=== PATIENT | male | born 1965 ===

== ENCOUNTER 2018-08-21 09:37 | Inpatient (IN) ==
[2018-08-21] MEDS ORDERED: BISACODYL 5 MG TABLET PO PRN (11:14)
[2018-08-21] MEDS ORDERED: ONDANSETRON 4 MG/2 ML VIAL IV PRN (11:14)
[2018-08-21] MEDS ORDERED: ACETAMINOPHEN 325 MG TABLET PO PRN (11:14)
[2018-08-21] MEDS ORDERED: GLUCAGON 1 MG VIAL IM PRN (11:17)
[2018-08-21] MEDS ORDERED: DEXTROSE 50% 25 GM/50 ML SYRINGE IV PRN (11:17)
[2018-08-21] MEDS ORDERED: BUPIVACAINE 0.5% 50 ML VIAL ONE (12:07)
[2018-08-21] MEDS ORDERED: LIDOCAINE 1%/EPI INJ 20 ML VIAL ONE (12:08)
[2018-08-21] MEDS: LACTATED RINGERS 1,000 ML IV SCH ×4 (12:15→23:03)
[2018-08-21] MEDS ORDERED: SEVOFLURANE 1 UNIT/15 MINUTE INH ONE (13:27)
[2018-08-21] MEDS ORDERED: PROPOFOL 200 MG/20 ML VIAL IV ONE (13:27)
[2018-08-21] MEDS ORDERED: MEPERIDINE 25 MG/1 ML VIAL ONE (13:28)
[2018-08-21] MEDS ORDERED: MIDAZOLAM 2 MG/2 ML VIAL ONE (13:28)
[2018-08-21] MEDS ORDERED: ONDANSETRON 4 MG/2 ML VIAL ONE (13:28)
[2018-08-21] MEDS ORDERED: fentaNYL 100 MCG/2 ML VIAL ONE (13:28)
[2018-08-21] MEDS ORDERED: ROCURONIUM 100 MG/10 ML VIAL IV ONE (13:29)
[2018-08-21] MEDS ORDERED: GLYCOPYRROLATE 0.4 MG/2 ML VIAL ONE (13:29)
[2018-08-21] MEDS ORDERED: NEOSTIGMINE 10 MG/10 ML VIAL ONE (13:29)
[2018-08-21] MEDS ORDERED: KETOROLAC 30 MG/1 ML VIAL ONE (13:29)
[2018-08-21] MEDS ORDERED: LACTATED RINGERS 1,000 ML IV ONE (13:29)
[2018-08-21] MEDS ORDERED: PHENYLEPHRINE 10 MG/1 ML VIAL IV ONE (13:29)
[2018-08-21] MEDS ORDERED: SODIUM CHLORIDE 0.9% 250 ML IV ONE (13:29)
[2018-08-21] MEDS: INSULIN LISPRO 100 UNIT/ML SUBCUT SCH ×2 (14:22→18:42)
[2018-08-21] MEDS: cefOXitin 2,000 MG in SYRINGE 1 EACH IV SCH ×2 (14:56→18:52)
[2018-08-22] MEDS: cefOXitin 2,000 MG in SYRINGE 1 EACH IV SCH ×4 (00:59→12:53)
[2018-08-22] MEDS: HYDROmorphone 2 MG/1 ML VIAL IV PRN ×2 (01:19→07:30)
[2018-08-22 04:48] LABS: Basophils % 0.4 % (0.0-0.8); Eosinophils # 0.1 10*3/uL (0.0-0.87); Hematocrit 34.4 VOL% (42.0-52.0); Hemoglobin 11.8 GM/DL (14.0-18.0); Immature Granulocytes % 0.4 %; Immature Granulocytes Absolute 0.02 #; Lymphocytes # 1.1 10*3/uL (1.4-4.0); Lymphocytes % 19.3 % (21.2-54.2); Mean Corpuscular HGB Conc 34.3 GM/DL (32-36); Mean Corpuscular Hemoglobin 31 PG (27-34); Mean Corpuscular Volume 91.2 FL (87-102); Mean Platelet Volume 9.5 FL (9.6-12.0); Monocytes # 0.6 10*3/uL (0.11-0.8); Monocytes % 10.6 % (1.7-12.7); Neutrophils # 3.7 10*3/uL (1.4-7.4); Neutrophils % 67.3 % (38.7-73.9); Platelet Count 164 T/CUMM (130-400); Red Blood Count 3.77 MC/CUMM (3.8-5.5); Red Cell Distribution Width 12.4 % (9.3-17.3); White Blood Count 5.5 T/CUMM (4-12)
[2018-08-22 05:04] LABS: Calcium 7.8 MG/DL (8.5-10.1); Osmolality,Calculated 279.4 MOS/KG (273-304); Potassium 3.9 MMOL/L (3.5-5.1)
[2018-08-22] MEDS: LACTATED RINGERS 1,000 ML IV SCH ×2 (07:24→13:02)
[2018-08-22] MEDS ORDERED: MAGNESIUM SULF RIDER 2 GM in PREMIX 1 EACH IV PRN (08:15)
[2018-08-22] MEDS ORDERED: MAGNESIUM SULF RIDER 4 GM in PREMIX 1 EACH IV PRN (08:15)
[2018-08-22] MEDS: INSULIN LISPRO 100 UNIT/ML SUBCUT SCH ×2 (08:48→12:53)
[2018-08-22] MEDS ORDERED: SIMVASTATIN 20 MG TABLET PO SCH (09:00)
[2018-08-22] MEDS ORDERED: LISINOPRIL 10 MG TABLET PO SCH (09:00)
[2018-08-22] MEDS ORDERED: PANTOPRAZOLE 40 MG TABLET PO SCH (09:00)
[2018-08-22] MEDS ORDERED: amLODIPine 5 MG TABLET PO SCH (09:00)
[2018-08-22 11:55] VITALS: BP 142/81
== END 2018-08-22 15:35 | disposition home or self-care (01) | DRG 343 ==
LOC: EDUNIT# → EDBD → N.ED 09:37 → N.EDINP 11:14 → N.3E 11:54
PROVIDERS: ADMIT Surgery; ATTEND Surgery

== ENCOUNTER 2021-01-25 17:34 | Inpatient (IN) ==
[2021-01-25] MEDS ORDERED: PIPERACILLIN/TAZOBACTAM 3,375 MG in SODIUM CHLORIDE 0.9% 100 ML IV STA (19:07)
[2021-01-25 19:18] LABS: Basophils % 0.5 % (0.0-0.8); Eosinophils # 0.1 10*3/uL (0.0-0.87); Eosinophils % 1.1 % (0.00-10.9); Hematocrit 39.8 VOL% (42.0-52.0); Immature Granulocytes % 0.5 %; Immature Granulocytes Absolute 0.03 #; Lymphocytes # 1.4 10*3/uL (1.4-4.0); Lymphocytes % 22.8 % (21.2-54.2); Mean Corpuscular HGB Conc 32.7 GM/DL (32-36); Mean Platelet Volume 9.7 FL (9.6-12.0); Monocytes % 6.8 % (1.7-12.7); Neutrophils % 68.3 % (38.7-73.9); Platelet Count 229 T/CUMM (130-400); Red Blood Count 4.42 MC/CUMM (3.8-5.5); Red Cell Distribution Width 13.7 % (9.3-17.3); White Blood Count 6.3 T/CUMM (4-12)
[2021-01-25 19:35] LABS: Albumin 2.9 G/DL (3.4-5.0); Bilirubin,Total 0.5 MG/DL (0.20-1.00); Calcium 8.2 MG/DL (8.5-10.1); Osmolality,Calculated 287.1 MOS/KG (273-304); Potassium 3.8 MMOL/L (3.5-5.1); Total Protein 6.8 G/DL (6.4-8.2)
[2021-01-25] MEDS ORDERED: MAGNESIUM SULF RIDER 2 GM/50 ML PREMIX IV STA (20:09)
[2021-01-25] MEDS ORDERED: ENOXAPARIN 100 MG/ML SYRINGE SUBCUT STA (20:09)
[2021-01-25] MEDS ORDERED: GLUCAGON 1 MG VIAL IM PRN (21:27)
[2021-01-25] MEDS ORDERED: DEXTROSE 50% 25 GM/50 ML VIAL IV PRN ×2 (21:27)
[2021-01-25] MEDS ORDERED: DOCUSATE SODIUM 100 MG CAPSULE PO PRN (21:27)
[2021-01-25] MEDS ORDERED: ONDANSETRON 4 MG/2 ML VIAL IV PRN (21:27)
[2021-01-25] MEDS: ACETAMINOPHEN 325 MG TABLET PO PRN (23:46)
[2021-01-26 05:19] LABS: Basophils % 0.6 % (0.0-0.8); Eosinophils # 0.2 10*3/uL (0.0-0.87); Eosinophils % 2.8 % (0.00-10.9); Hematocrit 38.6 VOL% (42.0-52.0); Hemoglobin 12.6 GM/DL (14.0-18.0); Immature Granulocytes % 0.6 %; Immature Granulocytes Absolute 0.03 #; Lymphocytes # 1.7 10*3/uL (1.4-4.0); Lymphocytes % 30.5 % (21.2-54.2); Mean Corpuscular HGB Conc 32.6 GM/DL (32-36); Mean Platelet Volume 9.5 FL (9.6-12.0); Monocytes % 7.5 % (1.7-12.7); Platelet Count 218 T/CUMM (130-400); Red Blood Count 4.29 MC/CUMM (3.8-5.5); Red Cell Distribution Width 13.5 % (9.3-17.3); White Blood Count 5.4 T/CUMM (4-12)
[2021-01-26 05:44] LABS: Calcium 7.9 MG/DL (8.5-10.1); Potassium 3.4 MMOL/L (3.5-5.1)
[2021-01-26] MEDS: INSULIN REGULAR 100 UNIT/ML SUBCUT SCH ×4 (07:16→21:13)
[2021-01-26] MEDS: PANTOPRAZOLE 40 MG TABLET PO SCH (08:49)
[2021-01-26] MEDS: ENOXAPARIN 100 MG/ML SYRINGE SUBCUT SCH ×2 (08:49→21:27)
[2021-01-26] MEDS ORDERED: POTASSIUM CHLORIDE 20 MEQ TABLET PO ONE (09:00)
[2021-01-26] MEDS: ACETAMINOPHEN 325 MG TABLET PO PRN ×2 (10:10→19:41)
[2021-01-27 05:53] LABS: Basophils % 0.4 % (0.0-0.8); Eosinophils # 0.2 10*3/uL (0.0-0.87); Eosinophils % 3.2 % (0.00-10.9); Hemoglobin 13.4 GM/DL (14.0-18.0); Immature Granulocytes % 0.8 %; Immature Granulocytes Absolute 0.04 #; Lymphocytes # 1.7 10*3/uL (1.4-4.0); Lymphocytes % 34.5 % (21.2-54.2); Mean Corpuscular HGB Conc 33.5 GM/DL (32-36); Mean Corpuscular Volume 88.9 FL (87-102); Mean Platelet Volume 9.7 FL (9.6-12.0); Monocytes % 9.5 % (1.7-12.7); Neutrophils % 51.6 % (38.7-73.9); Platelet Count 231 T/CUMM (130-400); Red Cell Distribution Width 13.6 % (9.3-17.3)
[2021-01-27 06:07] LABS: Osmolality,Calculated 281.1 MOS/KG (273-304); Potassium 3.6 MMOL/L (3.5-5.1)
[2021-01-27] MEDS: PANTOPRAZOLE 40 MG TABLET PO SCH (08:50)
[2021-01-27] MEDS: ENOXAPARIN 100 MG/ML SYRINGE SUBCUT SCH ×2 (08:51→21:24)
[2021-01-27] MEDS ORDERED: hydrALAZINE 20 MG/1 ML VIAL IV PRN (10:08)
[2021-01-27] MEDS: INSULIN REGULAR 100 UNIT/ML SUBCUT SCH ×4 (11:11→21:23)
[2021-01-27] MEDS ORDERED: DIAZEPAM 5 MG TABLET PO ONE (16:00)
[2021-01-27] MEDS ORDERED: DEXTROSE 50% 25 GM/50 ML VIAL IV PRN (17:16)
[2021-01-27] MEDS: LOSARTAN 25 MG TABLET PO SCH (21:22)
[2021-01-27] MEDS: ACETAMINOPHEN 325 MG TABLET PO PRN (21:22)
[2021-01-28 06:38] LABS: Basophils % 0.6 % (0.0-0.8); Eosinophils # 0.1 10*3/uL (0.0-0.87); Eosinophils % 2.4 % (0.00-10.9); Hematocrit 40.8 VOL% (42.0-52.0); Hemoglobin 13.4 GM/DL (14.0-18.0); Immature Granulocytes % 0.6 %; Immature Granulocytes Absolute 0.03 #; Lymphocytes # 1.5 10*3/uL (1.4-4.0); Lymphocytes % 29.8 % (21.2-54.2); Mean Corpuscular HGB Conc 32.8 GM/DL (32-36); Mean Corpuscular Volume 89.7 FL (87-102); Mean Platelet Volume 9.6 FL (9.6-12.0); Monocytes % 8.7 % (1.7-12.7); Neutrophils % 57.9 % (38.7-73.9); Platelet Count 262 T/CUMM (130-400); Red Blood Count 4.55 MC/CUMM (3.8-5.5); Red Cell Distribution Width 13.7 % (9.3-17.3)
[2021-01-28 07:02] LABS: Calcium 8.1 MG/DL (8.5-10.1); Osmolality,Calculated 283.1 MOS/KG (273-304); Potassium 3.8 MMOL/L (3.5-5.1)
[2021-01-28] MEDS: ENOXAPARIN 100 MG/ML SYRINGE SUBCUT SCH (08:24)
[2021-01-28] MEDS: PANTOPRAZOLE 40 MG TABLET PO SCH (08:24)
[2021-01-28] MEDS: LOSARTAN 25 MG TABLET PO SCH (08:24)
[2021-01-28 12:13] VITALS: BP 145/93
== END 2021-01-28 15:50 | disposition home or self-care (01) | DRG 294 ==
LOC: EDBD → EDUNIT# → N.EDINP 17:34 → N.ED 17:34 → SUATTDRO 21:27 → N.5E 23:08
PROVIDERS: ADMIT Internal Medicine; ATTEND Internal Medicine